=== PATIENT | female | born 1970 | race Caucasian/White ===

== ENCOUNTER 2020-01-06 08:06 | Outpatient (CLI) | payer BC, SELFPAY ==
[2020-01-06 08:26] LABS: Basophils Absolute Auto 0.01 K/mm3 (0.00-0.10); Basophils Percent Auto 0.2 % (0.0-1.0); Eosinophils Absolute Auto 0.11 K/mm3 (0.02-0.50); Eosinophils Percent Auto 2.3 % (1.0-6.0); Hematocrit 38.6 % (35.0-49.0); Hemoglobin 12.9 g/dL (12.0-15.0); Immature Granulocyte Absolute 0.01 K/mm3 (0.00-0.00); Immature Granulocyte Percent A 0.2 % (0.0-0.0); Lymphocytes Absolute Auto 1.99 K/mm3 (1.10-4.50); Lymphocytes Percent Auto 42.3 % (18.0-42.0); Mean Corpuscular HGB Conc 33.4 g/dL (32.0-36.0); Mean Corpuscular Hemoglobin 34.1 pg (27.0-31.0); Mean Corpuscular Volume 102.1 fL (78.0-102.0); Mean Platelet Volume 9.2 fl (9.2-11.8); Monocytes Absolute Auto 0.32 K/mm3 (0.10-0.90); Monocytes Percent Auto 6.8 % (2.0-11.0); Neutrophils Absolute Auto 2.3 K/mm3 (1.7-7.2); Neutrophils Percent Auto 48.2 % (50.0-70.0); Platelet Count Result 158 K/mm3 (150-420); Red Blood Count 3.78 M/mm3 (4.20-5.40); White Blood Count 4.7 K/mm3 (4.8-10.8)
[2020-01-06 08:27] LABS: Add Urine Microscopic? YES; Appearance Urine Clear (Clear); Bilirubin Urine Negative (Negative); Blood Urine 2+ (Negative); Color Urine Yellow (Yellow); Glucose Urine UA Negative (Negative); Ketones Urine Negative (Negative); Leukocyte Esterase Ur Negative LEU/UL (Negative); Nitrate Urine Negative (Negative); Protein Urine Negative (Negative); Specific Grav Ur 1.025 (1.010-1.020); Urobilinogen Urine 0.2 mg/dL (0.2-1.0)
[2020-01-06 08:33] LABS: Bacteria Urine 2+ /hpf; Squamous Epithelial Cell Urine Few /hpf (Few); WBC Urine 0-3 /hpf (0-3)
[2020-01-06 09:41] LABS: Alanine Aminotransferase 15 U/L (14-59); Albumin Level 3.4 g/dL (3.4-5.0); Alkaline Phosphatase 45 U/L (46-116); Anion Gap 8 mmol/L (8-16); Aspartate Amino Transferase < 10 U/L (15-37); Bilirubin,Total 0.2 mg/dL (0.00-1.00); Blood Urea Nitrogen 27 mg/dL (7-18); Carbon Dioxide 29 mmol/L (21-32); Chloride 105 mmol/L (98-108); Cholesterol 190 mg/dL (0-200); Estimated Glomerular Filt Rate > 60; Free T4 Free Thyroxine 0.93 ng/dL (0.76-1.46); Glucose 102 mg/dL (70-99); HDL Direct 72 mg/dL (40-60); LDL Cholesterol Calculated 100 mg/dL (<130); Osmolality Calculated 299 mOsm/kg (285-295); Potassium 4.5 mmol/L (3.5-5.1); Sodium 142 mmol/L (136-145); Thyroid Stimulating Hormone 1.64 uIU/mL (0.36-3.74); Total Protein 6.5 g/dL (6.4-8.2); Triglycerides 90 mg/dL (0-150)
[2020-01-06 14:41] LABS: Hemoglobin A1C 5.4 % (<5.7)
== END 2020-01-06 08:07 | disposition home or self-care (01) ==
PROVIDERS: PCP Internal Medicine; Visit Provider Internal Medicine
DX: E78.5 Hyperlipidemia, unspecified (principal); R73.01 Impaired fasting glucose
CPT/HCPCS: 36415; 80053; 80061; 81001; 83036; 84439; 84443; 85025

== ENCOUNTER 2020-01-10 10:59 | Outpatient (CLI) | payer BC, SELFPAY ==
[2020-01-10 11:13] LABS: Basophils Absolute Auto 0.01 K/mm3 (0.00-0.10); Basophils Percent Auto 0.2 % (0.0-1.0); Eosinophils Absolute Auto 0.05 K/mm3 (0.02-0.50); Hematocrit 39.1 % (35.0-49.0); Hemoglobin 13.1 g/dL (12.0-15.0); Immature Reticulocyte Fraction 11.4 % (2.0-16.52); Lymphocytes Absolute Auto 1.79 K/mm3 (1.10-4.50); Lymphocytes Percent Auto 37.4 % (18.0-42.0); Mean Corpuscular HGB Conc 33.5 g/dL (32.0-36.0); Mean Corpuscular Hemoglobin 34.1 pg (27.0-31.0); Mean Corpuscular Volume 101.8 fL (78.0-102.0); Mean Platelet Volume 9.6 fl (9.2-11.8); Monocytes Absolute Auto 0.29 K/mm3 (0.10-0.90); Monocytes Percent Auto 6.1 % (2.0-11.0); Neutrophils Absolute Auto 2.7 K/mm3 (1.7-7.2); Neutrophils Percent Auto 55.3 % (50.0-70.0); Platelet Count Result 170 K/mm3 (150-420); Red Blood Count 3.84 M/mm3 (4.20-5.40); Red Cell Distribution Width 12.1 % (11.6-14.4); Reticulocyte Hemoglobin Conten 38.8 pg (28.0-35.0); Reticulocyte Percent 2.88 % (0.50-1.50); Reticulocytes Absolute 0.11 M/mm3 (0.02-0.1); White Blood Count 4.8 K/mm3 (4.8-10.8)
[2020-01-10 12:36] LABS: Lactate Dehydrogenase 135 U/L (81-234); Vitamin B12 288 pg/mL (193-986)
[2020-01-12 14:58] LABS: Red Blood Cell Folate 806 ng/mL RBC (>280)
[2020-01-14 23:47] LABS: Methylmalonic Acid 199 nmol/L (87-318)
== END 2020-01-10 11:00 | disposition home or self-care (01) ==
PROVIDERS: PCP Internal Medicine; Visit Provider Internal Medicine
DX: D72.820 Lymphocytosis (symptomatic) (principal); E53.9 Vitamin B deficiency, unspecified
CPT/HCPCS: 36415; 82607; 82747; 83615; 83921; 85025; 85046; 88184; 88185; 88189

== ENCOUNTER 2020-01-12 10:03 | Outpatient (CLI) | payer BC, SELFPAY ==
--- NOTE | ~2020-01-12 | MM_ITS ---
EXAMINATION: MM screening meron BI w evan HISTORY: Screening mammogram, family history of breast cancer in her mother. TECHNIQUE: Craniocaudal and mediolateral oblique 3-D tomosynthesis images were obtained and synthetic 2-D images were generated. CAD analysis was submitted and interpreted. COMPARISON: 02/18/2017, 01/31/2016, 12/07/2014 BREAST PARENCHYMAL COMPOSITION: The breasts are extremely dense, which lowers the sensitivity of mamm ography. FINDINGS: There is no evidence of suspicious mass, calcification, or architectural distortion to sugg est malignancy in either breast. There has been no suspicious interval change. IMPRESSION: 1. No mammographic evidence of malignancy. 2. Recommend routine screening mammography in one year. BI-RADS Category 1: Negative Reviewed, dictated and finalized at location A. ICIAN VICE PRESIDENT
== END 2020-01-12 10:04 | disposition home or self-care (01) ==
LOC: CHSIMG 10:05
PROVIDERS: PCP Internal Medicine; Visit Provider Obstetrics & Gynecology
DX: Z12.31 Encounter for screening mammogram for malignant neoplasm of breast (principal)
CPT/HCPCS: 77063; 77067

== ENCOUNTER 2020-08-23 07:19 | Outpatient (CLI) | payer BC, SELFPAY ==
[2020-08-23 07:50] LABS: Hemoglobin A1C 5.3 % (<5.7)
[2020-08-23 08:39] LABS: Anion Gap 12 mmol/L (8-16); Blood Urea Nitrogen 23 mg/dL (7-18); Calcium 8.8 mg/dL (8.5-10.1); Carbon Dioxide 27 mmol/L (21-32); Chloride 102 mmol/L (98-108); Estimated Glomerular Filt Rate > 60; Glucose 92 mg/dL (70-99); Osmolality Calculated 295 mOsm/kg (285-295); Potassium 4.2 mmol/L (3.5-5.1); Sodium 141 mmol/L (136-145)
== END 2020-08-23 07:20 | disposition home or self-care (01) ==
LOC: CHSLAB 07:20
PROVIDERS: PCP Internal Medicine; Visit Provider Internal Medicine
DX: R73.01 Impaired fasting glucose (principal)
CPT/HCPCS: 36415; 80048; 83036

== ENCOUNTER → 2020-11-24 03:59 | Outpatient (CLI) | payer BC, SELFPAY ==
[2020-11-24 18:26] LABS: SARS-CoV-2 RNA PCR Negative
== END ==
PROVIDERS: PCP Internal Medicine; Visit Provider Internal Medicine Gastroenterology
DX: Z01.812 Encounter for preprocedural laboratory examination (principal); Z20.822 Contact with and (suspected) exposure to COVID-19
CPT/HCPCS: C9803; U0003; U0005

== ENCOUNTER 2020-11-27 01:01 | Day surgery (SDC) | payer BC, SELFPAY ==
[2020-11-16 09:22] VITALS: BMI 23.8
[2020-11-27 09:48] VITALS: BP 148/73; PULSE 72; RESP 16; TEMP 36.4; O2SAT 100
[2020-11-27] MEDS: LACTATED RINGERS 1,000 ML 150 ML IV CONT (09:56)
--- NOTE | 2020-11-27 09:57 | WPDANESEPPF ---
Anes - Initial Pre Proc Eval Procedure: Operation Date: 11/27/20 10:45 Proposed Procedures p Screening Colonoscopy - Prabhjot Vega MD Date/Time: 11/27/20 09:57 Surgeon: Prabhjot Vega MD Pre Op Diagnosis: neoplasm screening Patient Data Age: 50 Gender: F Height: 1.57 m Weight: 57.2 kg Last Vital Signs Temp 36.4 C 11/27/20 09:48 Pulse 72 11/27/20 09:48 Resp 16 11/27/20 09:48 BP 148/73 H 11/27/20 09:48 Pulse Ox 100 11/27/20 09:48 Allergies Allergy/AdvReac Type Severity Reaction Status Date / Time codeine Allergy Unknown Other Verified 11/27/20 09:46 Home Medications Medication Instructions Recorded Confirmed Type cholecalciferol (vitamin D3) 25 mcg PO DAILY 11/16/20 11/16/20 History [Vitamin D3] ipratropium bromide 2 spray INTRANASAL TID 11/16/20 11/16/20 History loratadine-pseudoephedrine 1 tablet PO DAILY 11/16/20 11/16/20 History [Claritin-D 24 Hour] mecobalamin (vitamin B12) 1,000 mcg PO DAILY 11/16/20 11/16/20 History montelukast 10 mg PO DAILY 11/16/20 11/16/20 History multivit with min-folic acid 1 tablet PO DAILY 11/16/20 11/16/20 History [Adult One Daily Multivitamin] norethindrone ac-eth estradiol 1 tablet PO DAILY 11/16/20 11/16/20 History [Microgestin 03/22 (21)] omega-3 fatty acids-vitamin E 1 cap PO DAILY 11/16/20 11/16/20 History [Fish Oil] omeprazole magnesium [Prilosec OTC] 20 mg PO EVERY OTHER DAY 11/16/20 11/16/20 History paroxetine HCl 10 mg PO DAILY 11/16/20 11/16/20 History valacyclovir [Valtrex] 500 mg PO DAILY 11/16/20 11/16/20 History Patient hx anesthesia problems: none Family hx anesthesia problems: none Results Review: All pre-operative results and documents have been reviewed as part of the pre-operative evaluation. [facility] Past Medical History Medical History (Updated 11/27/20 @ 09:57 by Blair Anderson MD) Asthma Surgical History Surgical History (Updated 11/27/20 @ 09:57 by Blair Anderson MD) History of esophagogastroduodenoscopy (EGD) Family History Family History Father Diabetes mellitus Family history of elevated blood lipids Mother Diabetes mellitus Hypertension Family history of elevated blood lipids Family history of malignant neoplasm of cervix Sibling Diabetes mellitus Other Family history of allergic disorder Family history of coronary artery disease Social History Social History Smoking status: Never smoker Alcohol intake: current Living arrangements: with family Spiritual care concerns: No Anes - Eval Final PreProcedure Day of Procedure 11/27/20 09:57 Patient weight: normal Heart: regular rate and rhythm Lungs: clear to auscultation Airway: Mallampati scale class II Neurological: alert and oriented Last oral intake: >/= 8 hours ASA classification: II Emergent: no Anesthetic plan: proceed Anesthesia type and monitoring: general GIVS and standard monitoring Results Review: All pre-operative results and documents have been reviewed as part of the pre-operative evaluation. Informed Consent: The patient's anesthetic plan and its attendant risks and benefits were discussed with the patient/family/POA. Questions were solicited and answers provided to the satisfaction of the patient/family/POA.
--- NOTE | 2020-11-27 10:23 | PM.HPGS ---
History of Present Illness History of Present Illness Consent: Risks, benefits, and alternatives have been discussed and questions answered. Patient agrees to proceed with procedure. Chief complaint: neoplasm screening Narrative: Jessie Summers is a 50 year old female here for first screening colonoscopy Review of Systems Constitutional: Constitutional: Denies headache(s) and Denies weakness Eyes: Eyes: Denies blurry vision ENT: Reports Normal hearing present, Denies headache(s) and Denies neck pain Cardiovascular: Cardiovascular: Denies chest pain and Denies dyspnea Respiratory: Respiratory: Denies dyspnea Gastrointestinal: Gastrointestinal: Reports no additional gastrointestinal complaints Genitourinary: Genitourinary: Denies dysuria Musculoskeletal: Musculoskeletal: Denies neck pain Integumentary/Breasts: Skin/Breast: Denies dry skin Neurologic: Reports Normal hearing present, Denies headache(s) and Denies weakness Psychiatric: Psychiatric: Denies anxiety Endocrine: Endocrine: Denies change in body appearance Hematologic/Lymphatic: Hematologic/Lymphatic: Denies easy bleeding Allergic/Immunologic: Allergic/Immunologic: Denies urticaria PMFSH Past Medical History Medical History (Updated 11/27/20 @ 10:24 by Prabhjot Vega MD) Asthma Colon cancer screening Surgical History Surgical History (Updated 11/27/20 @ 09:57 by Blair Anderson MD) History of esophagogastroduodenoscopy (EGD) Family History Family History Father Diabetes mellitus Family history of elevated blood lipids Mother Diabetes mellitus Hypertension Family history of elevated blood lipids Family history of malignant neoplasm of cervix Sibling Diabetes mellitus Other Family history of allergic disorder Family history of coronary artery disease Social History Social History Smoking status: Never smoker Alcohol intake: current Living arrangements: with family Spiritual care concerns: No Meds Home Medications and Allergies Home Medications Medication Instructions Recorded Confirmed Type cholecalciferol (vitamin D3) 25 mcg PO DAILY 11/16/20 11/16/20 History [Vitamin D3] ipratropium bromide 2 spray INTRANASAL TID 11/16/20 11/16/20 History loratadine-pseudoephedrine 1 tablet PO DAILY 11/16/20 11/16/20 History [Claritin-D 24 Hour] mecobalamin (vitamin B12) 1,000 mcg PO DAILY 11/16/20 11/16/20 History montelukast 10 mg PO DAILY 11/16/20 11/16/20 History multivit with min-folic acid 1 tablet PO DAILY 11/16/20 11/16/20 History [Adult One Daily Multivitamin] norethindrone ac-eth estradiol 1 tablet PO DAILY 11/16/20 11/16/20 History [Microgestin 03/22 ()] omega-3 fatty acids-vitamin E 1 cap PO DAILY 11/16/20 11/16/20 History [Fish Oil] omeprazole magnesium [Prilosec OTC] 20 mg PO EVERY OTHER DAY 11/16/20 11/16/20 History paroxetine HCl 10 mg PO DAILY 11/16/20 11/16/20 History valacyclovir [Valtrex] 500 mg PO DAILY 11/16/20 11/16/20 History Allergies Allergy/AdvReac Type Severity Reaction Status Date / Time codeine Allergy Unknown Other Verified 11/27/20 09:46 Vital Signs Vital Signs - 24 hr 11/27/20 09:48 Temperature 97.6 F Pulse Rate 72 Respiratory Rate 16 Blood Pressure 148/73 H Pulse Oximetry 100 Exam Const: General: comfortable and no acute distress HENMT: General nose exam: Normal nares present Eyes: General: appearance normal, both eyes and all related structures Neck: Neck: no JVD Resp: Auscultation: clear to auscultation bilaterally Cardio: Rate: regular rate Rhythm: regular rhythm GI: Inspection: non-distended GI Palp: Yes Soft to palpation Skin: General skin exam: normal color Neuro: General: gait normal Speech: normal speech Extrem: General: normal to inspection Psych: Mental Status: mental status grossly normal
[2020-11-27 10:42] VITALS: BP 122/68; PULSE 63; RESP 17; O2SAT 100
[2020-11-27 10:52] VITALS: BP 145/78; PULSE 69; RESP 17; O2SAT 100
[2020-11-27 11:02] VITALS: BP 156/86; PULSE 63; RESP 19; O2SAT 100
== END 2020-11-27 11:12 | disposition home or self-care (01) ==
PROVIDERS: PCP Internal Medicine; Visit Provider Internal Medicine Gastroenterology
PROC: 0DJD8ZZ Inspection of Lower Intestinal Tract, Via Natural or Artificial Opening Endoscopic (ICD-10-PCS; CPT 45378; principal; 2020-11-27 10:45)
DX: Z12.11 Encounter for screening for malignant neoplasm of colon (principal); K64.8 Other hemorrhoids; J45.909 Unspecified asthma, uncomplicated
CPT/HCPCS: 45378; J2704; J7120

== ENCOUNTER 2021-04-30 08:01 | Outpatient (CLI) | payer BC, SELFPAY ==
[2021-04-30 08:24] LABS: Basophils Absolute Auto 0.03 K/mm3 (0.00-0.10); Basophils Percent Auto 0.6 % (0.0-1.0); Eosinophils Absolute Auto 0.22 K/mm3 (0.02-0.50); Eosinophils Percent Auto 4.4 % (1.0-6.0); Hematocrit 39.4 % (35.0-49.0); Immature Granulocyte Absolute 0.02 K/mm3 (0.00-0.00); Immature Granulocyte Percent A 0.4 % (0.0-0.0); Lymphocytes Absolute Auto 1.82 K/mm3 (1.10-4.50); Lymphocytes Percent Auto 36.1 % (18.0-42.0); Mean Platelet Volume 9.2 fl (9.2-11.8); Monocytes Absolute Auto 0.34 K/mm3 (0.10-0.90); Monocytes Percent Auto 6.7 % (2.0-11.0); Neutrophils Absolute Auto 2.6 K/mm3 (1.7-7.2); Neutrophils Percent Auto 51.8 % (50.0-70.0); Platelet Count Result 173 K/mm3 (150-420); Red Blood Count 3.94 M/mm3 (4.20-5.40); Red Cell Distribution Width 11.9 % (11.6-14.4)
[2021-04-30 08:42] LABS: Add Urine Microscopic? YES; Bilirubin Urine Negative (Negative); Blood Urine 2+ (Negative); Color Urine Light Yellow (Yellow); Glucose Urine UA Negative (Negative); Ketones Urine Negative (Negative); Leukocyte Esterase Ur Trace LEU/UL (Negative); Nitrate Urine Positive (Negative); Protein Urine Negative (Negative); Urobilinogen Urine 0.2 mg/dL (0.2-1.0); pH Urine 6.5 (5.0-8.0)
[2021-04-30 08:53] LABS: Appearance Urine Sl Cloudy (Clear); Squamous Epithelial Cell Urine Few /hpf (Few); WBC Urine 0-3 /hpf (0-3)
[2021-04-30 08:54] LABS: Bacteria Urine 3+ /hpf
[2021-04-30 08:56] LABS: Alanine Aminotransferase 14 U/L (14-59); Albumin Level 3.3 g/dL (3.4-5.0); Alkaline Phosphatase 51 U/L (46-116); Anion Gap 9 mmol/L (8-16); Aspartate Amino Transferase 11 U/L (15-37); Bilirubin,Total 0.3 mg/dL (0.00-1.00); Blood Urea Nitrogen 22 mg/dL (7-18); Calcium 8.9 mg/dL (8.5-10.1); Carbon Dioxide 29 mmol/L (21-32); Chloride 104 mmol/L (98-108); Cholesterol 213 mg/dL (0-200); Estimated Glomerular Filt Rate > 60; Glucose 90 mg/dL (70-99); HDL Direct 78 mg/dL (40-60); LDL Cholesterol Calculated 98 mg/dL (<130); Osmolality Calculated 297 mOsm/kg (285-295); Potassium 4.2 mmol/L (3.5-5.1); Sodium 142 mmol/L (136-145); Total Protein 6.8 g/dL (6.4-8.2); Triglycerides 186 mg/dL (0-150)
[2021-04-30 09:42] LABS: Hemoglobin A1C 5.5 % (<5.7)
== END 2021-04-30 08:02 | disposition home or self-care (01) ==
LOC: CHSLAB 08:03
PROVIDERS: PCP Internal Medicine; Visit Provider Internal Medicine
DX: Z00.00 Encounter for general adult medical examination without abnormal findings (principal); R73.01 Impaired fasting glucose; R82.90 Unspecified abnormal findings in urine
CPT/HCPCS: 36415; 80053; 80061; 81001; 83036; 85025; 87077; 87086; 87088; 87186

== ENCOUNTER 2021-05-16 13:56 | Outpatient (CLI) | payer BC, SELFPAY ==
[2021-05-16 16:00] LABS: Anion Gap 8 mmol/L (8-16); Blood Urea Nitrogen 30 mg/dL (7-18); Calcium 9.1 mg/dL (8.5-10.1); Carbon Dioxide 29 mmol/L (21-32); Chloride 98 mmol/L (98-108); Estimated Glomerular Filt Rate > 60; Glucose 91 mg/dL (70-99); Osmolality Calculated 286 mOsm/kg (285-295); Potassium 4.3 mmol/L (3.5-5.1); Sodium 135 mmol/L (136-145)
== END 2021-05-16 13:57 | disposition home or self-care (01) ==
LOC: CHSLAB 13:57
PROVIDERS: PCP Internal Medicine; Visit Provider Internal Medicine
DX: I10 Essential (primary) hypertension (principal)
CPT/HCPCS: 36415; 80048

== ENCOUNTER 2021-05-22 11:39 | Outpatient (CLI) | payer BC, SELFPAY ==
--- NOTE | ~2021-05-22 | MM_ITS ---
EXAMINATION: MM screening meron BI w evan HISTORY: Screening mammogram TECHNIQUE: Craniocaudal and mediolateral oblique 3-D tomosynthesis images were obtained and synthetic 2-D images were generated. CAD analysis was submitted and interpreted. COMPARISON: 01/12/2020, 02/18/2017, 01/31/2016 bilateral screening mammogram examinations BREAST PARENCHYMAL COMPOSITION: The breasts are extremely dense, which lowers the sensitivity of mamm ography. FINDINGS: There is no evidence of suspicious mass, calcification, or architectural distortion to sugg est malignancy in either breast. There has been no suspicious interval change. IMPRESSION: 1. No mammographic evidence of malignancy. 2. Recommend routine screening mammography in one year. BI-RADS Category 1: Negative Reviewed, dictated and finalized at location A.
== END 2021-05-22 11:40 | disposition home or self-care (01) ==
LOC: CHSIMG 11:40
PROVIDERS: PCP Internal Medicine; Visit Provider Obstetrics & Gynecology
DX: Z12.31 Encounter for screening mammogram for malignant neoplasm of breast (principal)
CPT/HCPCS: 77063; 77067

== ENCOUNTER 2021-07-02 14:00 | Outpatient (CLI) | payer BC, SELFPAY ==
[2021-07-02 14:17] LABS: Add Urine Microscopic? YES; Appearance Urine Clear (Clear); Bilirubin Urine Negative (Negative); Blood Urine 2+ (Negative); Color Urine Light Yellow (Yellow); Glucose Urine UA Negative (Negative); Ketones Urine Negative (Negative); Leukocyte Esterase Ur Negative (Negative); Nitrate Urine Negative (Negative); Protein Urine Negative (Negative); Specific Grav Ur >= 1.030 (1.010-1.020); Urobilinogen Urine 0.2 mg/dL (0.2-1.0)
[2021-07-02 14:24] LABS: Anion Gap 8 mmol/L (8-16); Blood Urea Nitrogen 27 mg/dL (7-18); Carbon Dioxide 27 mmol/L (21-32); Chloride 101 mmol/L (98-108); Estimated Glomerular Filt Rate 58; Glucose 133 mg/dL (70-99); Osmolality Calculated 289 mOsm/kg (285-295); Sodium 136 mmol/L (136-145)
[2021-07-02 14:27] LABS: Squamous Epithelial Cell Urine Moderate /hpf (Few); WBC Urine 0-3 /hpf (0-3)
[2021-07-02 14:28] LABS: Bacteria Urine Trace /hpf; Mucus Urine Few /lpf
== END 2021-07-02 14:01 | disposition home or self-care (01) ==
LOC: CHSLAB 14:02
PROVIDERS: PCP Internal Medicine; Visit Provider Internal Medicine
DX: I10 Essential (primary) hypertension (principal)
CPT/HCPCS: 36415; 80048; 81001

== ENCOUNTER 2021-08-07 09:43 | Outpatient (CLI) | payer BC, SELFPAY ==
[2021-08-07 09:58] LABS: Add Urine Microscopic? YES; Appearance Urine Clear (Clear); Bilirubin Urine Negative (Negative); Blood Urine 2+ (Negative); Color Urine Yellow (Yellow); Glucose Urine UA Negative (Negative); Ketones Urine Negative (Negative); Leukocyte Esterase Ur Negative (Negative); Nitrate Urine Negative (Negative); Protein Urine Negative (Negative); Specific Grav Ur >= 1.030 (1.010-1.020); Urobilinogen Urine 0.2 mg/dL (0.2-1.0); pH Urine 5.5 (5.0-8.0)
[2021-08-07 10:08] LABS: Bacteria Urine 1+ /hpf; Squamous Epithelial Cell Urine Few /hpf (Few); WBC Urine None seen /hpf (0-3)
[2021-08-07 10:13] LABS: Anion Gap 7 mmol/L (8-16); Blood Urea Nitrogen 22 mg/dL (7-18); Calcium 9.2 mg/dL (8.5-10.1); Carbon Dioxide 29 mmol/L (21-32); Chloride 100 mmol/L (98-108); Estimated Glomerular Filt Rate > 60; Glucose 104 mg/dL (70-99); Osmolality Calculated 285 mOsm/kg (285-295); Potassium 3.4 mmol/L (3.5-5.1); Sodium 136 mmol/L (136-145)
== END 2021-08-07 09:44 | disposition home or self-care (01) ==
LOC: CHSLAB 09:44
PROVIDERS: PCP Internal Medicine; Visit Provider Internal Medicine
DX: I10 Essential (primary) hypertension (principal)
CPT/HCPCS: 36415; 80048; 81001

== ENCOUNTER 2021-09-26 14:21 | Outpatient (CLI) | payer BC, SELFPAY ==
[2021-09-26 14:53] LABS: Anion Gap 9 mmol/L (8-16); Blood Urea Nitrogen 24 mg/dL (7-18); Calcium 9.6 mg/dL (8.5-10.1); Carbon Dioxide 26 mmol/L (21-32); Chloride 104 mmol/L (98-108); Estimated Glomerular Filt Rate > 60; Glucose 128 mg/dL (70-99); Osmolality Calculated 294 mOsm/kg (285-295); Potassium 4.1 mmol/L (3.5-5.1); Sodium 139 mmol/L (136-145)
== END 2021-09-26 14:22 | disposition home or self-care (01) ==
LOC: CHSLAB 14:23
PROVIDERS: PCP Internal Medicine; Visit Provider Internal Medicine
DX: I10 Essential (primary) hypertension (principal)
CPT/HCPCS: 36415; 80048

== ENCOUNTER 2022-02-21 08:10 | Outpatient (CLI) | payer BC, SELFPAY ==
[2022-02-21 08:35] LABS: Basophils Absolute Auto 0.02 K/mm3 (0.00-0.10); Basophils Percent Auto 0.5 % (0.0-1.0); Eosinophils Percent Auto 2.3 % (1.0-6.0); Hematocrit 35.9 % (35.0-49.0); Immature Granulocyte Absolute 0.01 K/mm3 (0.00-0.00); Immature Granulocyte Percent A 0.2 % (0.0-0.0); Lymphocytes Absolute Auto 1.85 K/mm3 (1.10-4.50); Mean Corpuscular HGB Conc 33.4 g/dL (32.0-36.0); Mean Corpuscular Hemoglobin 33.3 pg (27.0-31.0); Mean Corpuscular Volume 99.7 fL (78.0-102.0); Mean Platelet Volume 9.5 fl (9.2-11.8); Monocytes Absolute Auto 0.27 K/mm3 (0.10-0.90); Monocytes Percent Auto 6.1 % (2.0-11.0); Neutrophils Absolute Auto 2.2 K/mm3 (1.7-7.2); Neutrophils Percent Auto 48.9 % (50.0-70.0); Platelet Count Result 172 K/mm3 (150-420); Red Cell Distribution Width 12.1 % (11.6-14.4); White Blood Count 4.4 K/mm3 (4.8-10.8)
[2022-02-21 08:36] LABS: Add Urine Microscopic? YES; Appearance Urine Clear (Clear); Bilirubin Urine Negative (Negative); Blood Urine 3+ (Negative); Color Urine Light Yellow (Yellow); Glucose Urine UA Negative (Negative); Ketones Urine Negative (Negative); Leukocyte Esterase Ur 1+ LEU/UL (Negative); Nitrate Urine Negative (Negative); Protein Urine Negative (Negative); Specific Grav Ur 1.025 (1.010-1.020); Urobilinogen Urine 0.2 mg/dL (0.2-1.0)
[2022-02-21 08:41] LABS: Bacteria Urine 1+ /hpf; Squamous Epithelial Cell Urine Moderate /hpf (Few)
[2022-02-21 09:04] LABS: Hemoglobin A1C 5.3 % (<5.7)
[2022-02-21 10:06] LABS: Alanine Aminotransferase 15 U/L (14-59); Albumin Level 3.3 g/dL (3.4-5.0); Alkaline Phosphatase 46 U/L (46-116); Anion Gap 8 mmol/L (8-16); Aspartate Amino Transferase 12 U/L (15-37); Bilirubin,Total 0.2 mg/dL (0.00-1.00); Blood Urea Nitrogen 24 mg/dL (7-18); Calcium 8.8 mg/dL (8.5-10.1); Carbon Dioxide 29 mmol/L (21-32); Chloride 103 mmol/L (98-108); Cholesterol 196 mg/dL (0-200); Creatine Kinase 47 U/L (26-192); Estimated Glomerular Filt Rate > 60; Glucose 100 mg/dL (70-99); HDL Direct 74 mg/dL (40-60); LDL Cholesterol Calculated 105 mg/dL (<130); Osmolality Calculated 294 mOsm/kg (285-295); Potassium 4.2 mmol/L (3.5-5.1); Sodium 140 mmol/L (136-145); Total Protein 6.5 g/dL (6.4-8.2); Triglycerides 87 mg/dL (0-150)
== END 2022-02-21 08:11 | disposition home or self-care (01) ==
LOC: CHSLAB 08:13
PROVIDERS: PCP Internal Medicine; Visit Provider Internal Medicine
DX: E78.2 Mixed hyperlipidemia (principal); I10 Essential (primary) hypertension; R73.01 Impaired fasting glucose; N39.0 Urinary tract infection, site not specified
CPT/HCPCS: 36415; 80053; 80061; 81001; 82550; 83036; 85025; 87086; 87088

== ENCOUNTER 2022-05-23 11:56 | Outpatient (CLI) | payer BC, SELFPAY ==
--- NOTE | ~2022-05-23 | MM_ITS ---
EXAMINATION: MM screening meron BI w evan HISTORY: Screening TECHNIQUE: Craniocaudal and mediolateral oblique 3-D tomosynthesis images were obtained and synthetic 2-D images were generated. CAD analysis was submitted and interpreted. COMPARISON: Comparison to multiple prior studies sequentially, with oldest reviewed study dated 11/24. BREAST PARENCHYMAL COMPOSITION: The breasts are heterogeneously dense, which may obscure small masses FINDINGS: The left breast is stable without evidence for malignancy. There is possible architectural distortion in the upper inner quadrant of the right breast. IMPRESSION: 1. Possible architectural distortion upper inner quadrant of the right breast. 2. Additional mammographic views and possible breast ultrasound are recommended. BI-RADS Category 0: Incomplete: Needs additional imaging evaluation. Reviewed, dictated and finalized at location A. IMPRESSION: 1. Possible architectural distortion upper inner quadrant of the right breast. 2. Additional mammographic views and possible breast ultrasound are recommended . BI-RADS Category 0: Incomplete: Needs additional imaging evaluation.
== END 2022-05-23 11:57 | disposition home or self-care (01) ==
LOC: CHSIMG 11:57
PROVIDERS: PCP Internal Medicine; Visit Provider Obstetrics & Gynecology
DX: Z12.31 Encounter for screening mammogram for malignant neoplasm of breast (principal); R92.8 Other abnormal and inconclusive findings on diagnostic imaging of breast
CPT/HCPCS: 77063; 77067

== ENCOUNTER 2022-05-31 09:26 | Outpatient (CLI) | payer BC, SELFPAY ==
--- NOTE | ~2022-05-31 | MMUS_ITS ---
EXAMINATION: MM diagnostic meron RT w evan, US breast RT complete HISTORY: Follow-up right breast asymmetry TECHNIQUE: Additional 3-D tomosynthesis images of the right breast were performed and synthetic 2-D i mages were generated. CAD analysis was submitted and interpreted. High resolution complete right sudha st ultrasound was performed. COMPARISON: Comparison to multiple prior studies sequentially, with oldest reviewed study dated 01/31. BREAST PARENCHYMAL COMPOSITION: The breasts are heterogeneously dense, which may obscure small masses FINDINGS: MAMMOGRAPHIC FINDINGS: Focal asymmetries in the medial aspect of the right breast on CC view are less apparent with spot com pression views particularly on medial lateral and MLO views. No discrete mass is identified. No suspi cious calcifications. ULTRASOUND: Complete US of all 4 quadrants of the right breast and retroareolar region was reviewed. Normal heter ogeneous echotexture without focal solid or cystic mass. IMPRESSION: 1. No evidence for malignancy in the right breast. 2. Routine yearly screening mammogram and regular clinical breast examination are recommended. BI-RADS Category 1: Negative Reviewed, dictated and finalized at location A. IMPRESSION: 1. No evidence for malignancy in the right breast. 2. Routine yearly screening mammogram and regular clinical breast examination a re recommended. BI-RADS Category 1: Negative
== END 2022-05-31 09:27 | disposition home or self-care (01) ==
LOC: CHSIMG 09:27
PROVIDERS: PCP Internal Medicine; Visit Provider Internal Medicine
DX: R92.8 Other abnormal and inconclusive findings on diagnostic imaging of breast (principal)
CPT/HCPCS: 76641; 77061; 77065; G0279

== ENCOUNTER 2022-09-20 08:11 | Outpatient (CLI) | payer BC, SELFPAY ==
[2022-09-20 08:24] LABS: Basophils Absolute Auto 0.02 K/mm3 (0.00-0.10); Basophils Percent Auto 0.4 % (0.0-1.0); Eosinophils Absolute Auto 0.07 K/mm3 (0.02-0.50); Eosinophils Percent Auto 1.3 % (1.0-6.0); Hematocrit 36.7 % (35.0-49.0); Hemoglobin 12.2 g/dL (12.0-15.0); Immature Granulocyte Absolute 0.02 K/mm3 (0.00-0.00); Immature Granulocyte Percent A 0.4 % (0.0-0.0); Lymphocytes Absolute Auto 2.01 K/mm3 (1.10-4.50); Mean Corpuscular HGB Conc 33.2 g/dL (32.0-36.0); Mean Corpuscular Hemoglobin 33.4 pg (27.0-31.0); Mean Corpuscular Volume 100.5 fL (78.0-102.0); Mean Platelet Volume 9.4 fl (9.2-11.8); Monocytes Absolute Auto 0.33 K/mm3 (0.10-0.90); Monocytes Percent Auto 6.2 % (2.0-11.0); Neutrophils Absolute Auto 2.8 K/mm3 (1.7-7.2); Neutrophils Percent Auto 53.7 % (50.0-70.0); Platelet Count Result 191 K/mm3 (150-420); Red Blood Count 3.65 M/mm3 (4.20-5.40); Red Cell Distribution Width 12.2 % (11.6-14.4); White Blood Count 5.3 K/mm3 (4.8-10.8)
[2022-09-20 08:33] LABS: Hemoglobin A1C 5.3 % (<5.7)
[2022-09-20 08:49] LABS: Bilirubin Urine Negative (Negative); Blood Urine 2+ (Negative); Color Urine Yellow (Yellow); Glucose Urine UA Negative (Negative); Ketones Urine Negative (Negative); Leukocyte Esterase Ur 1+ LEU/UL (Negative); Nitrate Urine Negative (Negative); Protein Urine Negative (Negative); Urobilinogen Urine 0.2 mg/dL (0.2-1.0)
[2022-09-20 09:08] LABS: Appearance Urine Cloudy (Clear)
[2022-09-20 09:09] LABS: Add Urine Microscopic? YES; Bacteria Urine 2+ /hpf; Squamous Epithelial Cell Urine Moderate /hpf (Few)
[2022-09-20 09:16] LABS: Alanine Aminotransferase 18 U/L (14-59); Albumin Level 3.3 g/dL (3.4-5.0); Alkaline Phosphatase 57 U/L (46-116); Anion Gap 8 mmol/L (8-16); Aspartate Amino Transferase 13 U/L (15-37); Bilirubin,Total 0.4 mg/dL (0.00-1.00); Blood Urea Nitrogen 22 mg/dL (7-18); Calcium 9.1 mg/dL (8.5-10.1); Carbon Dioxide 30 mmol/L (21-32); Chloride 102 mmol/L (98-108); Cholesterol 204 mg/dL (0-200); Creatine Kinase 43 U/L (26-192); Estimated Glomerular Filt Rate > 60; Glucose 94 mg/dL (70-99); HDL Direct 65 mg/dL (40-60); LDL Cholesterol Calculated 98 mg/dL (<130); Osmolality Calculated 293 mOsm/kg (285-295); Potassium 4.1 mmol/L (3.5-5.1); Sodium 140 mmol/L (136-145); Total Protein 6.6 g/dL (6.4-8.2); Triglycerides 203 mg/dL (0-150)
== END 2022-09-20 08:12 | disposition home or self-care (01) ==
LOC: CHSLAB 08:14
PROVIDERS: PCP Internal Medicine; Visit Provider Internal Medicine
DX: N39.0 Urinary tract infection, site not specified (principal); R73.01 Impaired fasting glucose; E78.5 Hyperlipidemia, unspecified
CPT/HCPCS: 36415; 80053; 80061; 81001; 82550; 83036; 85025; 87086; 87088

== ENCOUNTER 2023-03-21 07:45 | Outpatient (CLI) | payer BC, SELFPAY ==
[2023-03-21 07:57] LABS: Basophils Absolute Auto 0.03 K/mm3 (0.00-0.10); Basophils Percent Auto 0.5 % (0.0-1.0); Eosinophils Percent Auto 1.8 % (1.0-6.0); Hematocrit 36.1 % (35.0-49.0); Hemoglobin 11.7 g/dL (12.0-15.0); Immature Granulocyte Absolute 0.01 K/mm3 (0.00-0.00); Immature Granulocyte Percent A 0.2 % (0.0-0.0); Lymphocytes Absolute Auto 2.33 K/mm3 (1.10-4.50); Lymphocytes Percent Auto 41.7 % (18.0-42.0); Mean Corpuscular HGB Conc 32.4 g/dL (32.0-36.0); Mean Corpuscular Hemoglobin 32.5 pg (27.0-31.0); Mean Corpuscular Volume 100.3 fL (78.0-102.0); Mean Platelet Volume 9.6 fl (9.2-11.8); Monocytes Absolute Auto 0.34 K/mm3 (0.10-0.90); Monocytes Percent Auto 6.1 % (2.0-11.0); Neutrophils Absolute Auto 2.8 K/mm3 (1.7-7.2); Neutrophils Percent Auto 49.7 % (50.0-70.0); Platelet Count Result 176 K/mm3 (150-420); Red Cell Distribution Width 12.3 % (11.6-14.4); White Blood Count 5.6 K/mm3 (4.8-10.8)
[2023-03-21 08:01] LABS: Appearance Urine Clear (Clear); Bilirubin Urine Negative (Negative); Blood Urine 3+ (Negative); Color Urine Yellow (Yellow); Glucose Urine UA Negative (Negative); Ketones Urine Negative (Negative); Leukocyte Esterase Ur Trace LEU/UL (Negative); Nitrate Urine Negative (Negative); Protein Urine Negative (Negative); Urobilinogen Urine 0.2 mg/dL (0.2-1.0); pH Urine 6.5 (5.0-8.0)
[2023-03-21 08:10] LABS: Hemoglobin A1C 5.3 % (<5.7)
[2023-03-21 08:11] LABS: Add Urine Microscopic? YES; Squamous Epithelial Cell Urine Few /hpf (Few); WBC Urine 0-3 /hpf (0-3)
[2023-03-21 08:12] LABS: Bacteria Urine Trace /hpf
[2023-03-21 08:53] LABS: Alanine Aminotransferase 17 U/L (14-59); Albumin Level 3.2 g/dL (3.4-5.0); Alkaline Phosphatase 51 U/L (46-116); Anion Gap 11 mmol/L (8-16); Aspartate Amino Transferase 16 U/L (15-37); Bilirubin,Total 0.4 mg/dL (0.00-1.00); Blood Urea Nitrogen 26 mg/dL (7-18); Calcium 8.6 mg/dL (8.5-10.1); Carbon Dioxide 27 mmol/L (21-32); Chloride 98 mmol/L (98-108); Cholesterol 204 mg/dL (0-200); Creatine Kinase 49 U/L (26-192); Estimated Glomerular Filt Rate > 60; Glucose 96 mg/dL (70-99); HDL Direct 71 mg/dL (40-60); LDL Cholesterol Calculated 98 mg/dL (<130); Osmolality Calculated 286 mOsm/kg (285-295); Potassium 3.8 mmol/L (3.5-5.1); Sodium 136 mmol/L (136-145); Total Protein 6.5 g/dL (6.4-8.2); Triglycerides 177 mg/dL (0-150)
== END 2023-03-21 07:46 | disposition home or self-care (01) ==
LOC: CHSLAB 07:47
PROVIDERS: PCP Internal Medicine; Visit Provider Internal Medicine
DX: N39.0 Urinary tract infection, site not specified (principal); E78.5 Hyperlipidemia, unspecified; R73.01 Impaired fasting glucose
CPT/HCPCS: 36415; 80053; 80061; 81001; 82550; 83036; 85025

== ENCOUNTER 2023-06-03 13:54 | Outpatient (CLI) | payer BC, SELFPAY ==
--- NOTE | ~2023-06-03 | MM_ITS ---
EXAMINATION: MM screening meron BI w evan HISTORY: Screening TECHNIQUE: Craniocaudal and mediolateral oblique 3-D tomosynthesis images were obtained and synthetic 2-D images were generated. CAD analysis was submitted and interpreted. COMPARISON: Comparison to multiple prior studies sequentially, with oldest reviewed study dated 05/22. BREAST PARENCHYMAL COMPOSITION: Dense: The breasts are heterogeneously dense, which may obscure small masses FINDINGS: There is no evidence of suspicious mass, calcification, or architectural distortion to sugg est malignancy in either breast. There has been no suspicious interval change. IMPRESSION: 1. No mammographic evidence of malignancy. 2. Recommend routine screening mammography in one year. BI-RADS Category 1: Negative Reviewed, dictated and finalized at location A.
== END 2023-06-03 13:55 | disposition home or self-care (01) ==
PROVIDERS: PCP Internal Medicine; Visit Provider Obstetrics & Gynecology
DX: Z12.31 Encounter for screening mammogram for malignant neoplasm of breast (principal)
CPT/HCPCS: 77063; 77067

== ENCOUNTER 2024-04-16 08:05 | Outpatient (CLI) | payer BC, SELFPAY ==
--- OUTSIDE RECORDS SUMMARY | 2024-04-16 08:13 | XMS_ITS | Clinical Summary ---
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 Gender Identity Not on file Sexual Orientation Not on file Plan of Treatment Health Maintenance Due Date Last Done Comments DTAP/TDAP/TD VACCINES (1 - Tdap) 1989 HEPATITIS B VACCINES (1 of 3 - 19+ 3-dose series) 1989 BREAST CANCER SCREENING 2010 COLORECTAL SCREENING 2015 Colorectal Cancer Screening 2015 FIT-DNA Q 3 years 2015 FIT/FOBT Q 1 year 2015 Flex Sig/CT Colonography Q 5 years 2015 ZOSTER VACCINE (1 of 2) 02/12/2020 CERVICAL CANCER SCREENING 09/13/20232020, 09/06/2019, 09/01/2018, Additional history exists INFLUENZA VACCINE (#1) 2023 PNEUMOCOCCAL VACCINE 0-64 YEARS Aged Out No longer eligible based on patient's age to complete this topic Care Teams Career Development Coordinator Relationship Specialty Start Date End Date Hilton Tapia MD [address] [place] [address] PCP - General Internal Medicine 08/03/18
--- OUTSIDE RECORDS SUMMARY | 2024-04-16 08:13 | XMS_ITS | Clinical Summary ---
Author Organization [facility] Address [address] [place] [id number] Care Team Providers Care Menagerie Caretaker Name Role Phone Hilton Tapia MD Primary Care Provider + [phone] Alin Lopez MD Unavailable [phone] Allergies Active Allergy Reactions Criticality Noted Date Comments Codeine Medications cholecalciferol (VITAMIN D-3) 50,000 unit capsule Active ipratropium (ATROVENT) 42 mcg (0.06 %) nasal spray 09/18/2018 Active loratadine-pseud oephedrine (CLARITIN-D 24-hour) 10-240 mg per 24 hr tablet Active montelukast (SINGULAIR) 10 mg tablet 09/08/2018 Active multivitamin tablet Active MICROGESTIN 1/20, 21, 1-20 mg-mcg per tablet Take 1 tablet by mouth daily 3 10/19/2018 Active omeprazole (PriLOSEC) 20 mg capsule Active PARoxetine (PAXIL) 10 mg tablet 09/14/2018 Active valACYclovir (VALTREX) 500 mg tablet 08/03/2018 Active triamcinolone acetonide (NASACORT AQ NASL) Active Active Problems Problem Noted Date Diagnosed Date Pelvic and perineal pain 11/15/2008 Overview (11/09/2018): Written: Vulvar Irritation. Surgical History Surgery Date Site/Laterality Comments NH UNLISTED PROCEDURE INNER EAR Inner Ear Surgery - (Added by BRIAN Conv) BACK SURGERY Back Surgery - (Added by BRIAN Conv) Medical History Medical History Date Comments Personal history of other di seases of the respiratory system History of asthma - (Added b y TW Conv) Personal history of other di seases of the respiratory system History of sinusitis - (Adde d by TW Conv) Family History Medical History Relation Name Comments Breast cancer Mother Family history of malignant neoplasm of breast - (Added by TW Conv) Diabetes Mother Family history of diabetes mellitus - (Added by TW Conv) Hyperlipidemia Mother Family histor y of hyperlipidemia - (Added by TW Conv) Hypertension Mother Family history of hypertension - (Added by TW Conv) Relation Name Status Comments Mother Social History Tobacco Use Types Packs/Day Years Used Date Smoking Tobacco: Never Tobacco Cessation:Counseling Given: Not Answered Personal Safety Answer Date Recorded Getting School Help Needed Not on file 05/16 Comments Unknown Sex and Gender Information Value Date Recorded Sex Assigned at Not on file Legal Sex Female 10:37 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 Gender Identity Not on file Sexual Orientation Not on file Obstetrics History Last Filed Vital Signs Vital Sign Reading Time Taken Comments Blood Pressure 120/76 02/23/2022 10:59 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 Pulse 85 02/23/2022 10:59 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 Temperature 36.6 C (97.9 F) 02/23/2022 10:59 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 Respiratory Rate 16 02/23/2022 10:5 9 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 Oxygen Saturation 99% 02/23/2022 10: 59 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 Inhaled Oxygen Concentration - - Weight 61.6 kg (135 lb 11.2 oz) 022 10:59 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 Height 157.5 cm (5' 2 ) 02/23/2022 10:5 9 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 Body Mass Index 24.82 02/23/2022 10:59 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 Plan of Treatment Health Maintenance Due Date Last Done Comments Breast Cancer Screening-Mammogram 1970 Cervical Cancer Screening 1970 Colon Cancer Screening-Colonoscopy 1970 Depression Screening 1970 Hepatitis C Screening 1970 DTaP/Tdap/Td Vaccine (1 - Tdap) 1981 Hepatitis B Screening 02/12/1988 Regular Well Visit/Exam 18-64 02/12/1988 Zoster Vaccine (1 of 2) 02/12/2020 Influenza Vaccine (#1) 2023 Pneumococcal vaccine <65 Aged Out No longer eligible based on patient's age to complete this topic Insurance .[employer] ID .[employer] Care Teams Menagerie Caretaker Relationship Specialty Start Date End Date Hilton Tapia MD [address] [place] [id number] PCP - General 01/06/17 Alin Lopez MD [address] [place] [address] Referring Physician Otolaryngology 11/09/18
--- OUTSIDE RECORDS SUMMARY | 2024-04-16 08:13 | XMS_ITS | Clinical Summary ---
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 Gender Identity Not on file Sexual Orientation Not on file Plan of Treatment Health Maintenance Due Date Last Done Comments Hepatitis C Virus (HCV) Screening 1970 TdaP Immunization 1970 Hepatitis B Immunization (1 of 3 - 19+ 3-dose series) 1989 Pap Smear 1991 Cervical Cancer Screening (CCS) 02/12/2000 HPV/Cotest 02/12/2000 Colonoscopy 2015 Colorectal Cancer Screening 2015 Cologuard 02/12/2020 Immunochemical Fecal Occult Blood 02/12/2020 Mammogram 02/12/2020 Pneumococcal Immunization (5 0+ years) (1 of 1 - PCV) 02/12/2020 Zoster Immunization (1 of 2) 02/12/2020 Influenza Immunization (#1) 2023 SARS-COV-2 Immunization ( season) 2023 Respiratory Syncytial Virus (RSV) Immunization (Adult) (1 - 1-dose 75+ series) 2045 Meningococcal Immunization (ACWY) Aged Out No longer eligible based on patient's age to complete this topic Pneumococcal Immunization Combined Aged Out No longer eligible based on patient's age to complete this topic Rotavirus Immunization Aged Out No lo nger eligible based on patient's age to complete this topic Insurance [employer] on file
--- OUTSIDE RECORDS SUMMARY | 2024-04-16 08:14 | XMS_ITS | Referral Summary ---
Author Organization [facility] Address [address] [place] [address] Care Team Providers Care Spike Machine Heater Name Role Phone Hilton Tapia MD Primary Care Provider + [phone] Alin Lopez MD Unavailable [phone] Allergies Active Allergy Reactions Criticality Noted Date [...] pain 11/15/2008 Overview (11/09/2018): Written: Vulvar Irritation. 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 Gender Identity Not on file Sexual Orientation Not on file Last Filed Vital Signs Vital Sign Reading Time Taken Comments Blood Pressure 120/76 02/23/2022 10:59 AM FARM SERVICE ADVISER Pulse 85 02/23/2022 10:59 AM FARM SERVICE ADVISER Temperature 36.6 C (97.9 F) 02/23/2022 10:59 AM FARM SERVICE ADVISER Respiratory Rate 16 02/23/2022 10:5 9 AM FARM SERVICE ADVISER Oxygen Saturation 99% 02/23/2022 10: 59 AM FARM SERVICE ADVISER Inhaled Oxygen Concentration - - Weight 61.6 kg (135 lb 11.2 oz) 022 10:59 AM FARM SERVICE ADVISER Height 157.5 cm (5' 2 ) 02/23/2022 10:5 9 AM FARM SERVICE ADVISER Body Mass Index 24.82 02/23/2022 10:59 AM FARM SERVICE ADVISER Plan of Treatment Not on file Insurance Storie [place] Storie [place] Care Teams Spike Machine Heater Relationship Specialty Start Date End Date Hilton Tapia MD [address] [place] [id number] PCP - General 01/06/17 Alin Lopez MD [address] [place] [address] [place] [address] Referring Physician Otolaryngology 11/09/18
[2024-04-16 08:20] LABS: Hematocrit 35.8 % (35.0-49.0); Hemoglobin 11.7 g/dL (12.0-15.0); Mean Corpuscular HGB Conc 32.7 g/dL (32-36); Mean Corpuscular Volume 100.8 fL (78.0-102.0); Mean Platelet Volume 9.5 fl (9.2-11.8); Platelet Count Result 168 K/mm3 (150-420); Red Blood Count 3.55 M/mm3 (4.20-5.40); Red Cell Distribution Width 12.5 % (11.6-14.4); White Blood Count 4.8 K/mm3 (4.8-10.8)
[2024-04-16 08:32] LABS: Hemoglobin A1C 5.5 % (<5.7)
[2024-04-16 08:43] LABS: Add Urine Microscopic? YES; Appearance Urine Clear (Clear); Bilirubin Urine Negative (Negative); Blood Urine 2+ (Negative); Color Urine Yellow (Yellow); Glucose Urine UA Negative (Negative); Ketones Urine Negative (Negative); Leukocyte Esterase Ur 1+ (Negative); Nitrate Urine Negative (Negative); Protein Urine Negative (Negative); Specific Grav Ur 1.025 (1.010-1.020); Urobilinogen Urine 0.2 mg/dL (0.2-1.0)
[2024-04-16 09:01] LABS: RBC Urine 0-2 /hpf (0-2); WBC Urine 0-3 /hpf (0-3)
[2024-04-16 09:02] LABS: Bacteria Urine 1+ /hpf; Squamous Epithelial Cell Urine Moderate /hpf (Few)
[2024-04-16 11:05] LABS: Alanine Aminotransferase 20 U/L (14-59); Albumin Level 3.5 g/dL (3.4-5.0); Alkaline Phosphatase 55 U/L (46-116); Anion Gap 4 mmol/L (4-12); Aspartate Amino Transferase 12 U/L (15-37); Bilirubin,Total 0.4 mg/dL (0.00-1.00); Blood Urea Nitrogen 25 mg/dL (7-18); Calcium 8.7 mg/dL (8.5-10.1); Carbon Dioxide 28 mmol/L (21-32); Chloride 105 mmol/L (98-108); Cholesterol 207 mg/dL (0-200); Estimated Glomerular Filt Rate > 60; Glucose 95 mg/dL (70-99); HDL Direct 80 mg/dL (40-60); LDL Cholesterol Calculated 98 mg/dL (<130); Osmolality Calculated 288 mOsm/kg (285-295); Potassium 3.8 mmol/L (3.5-5.1); Sodium 137 mmol/L (136-145); Total Protein 6.7 g/dL (6.4-8.2); Triglycerides 147 mg/dL (0-150); Vitamin B12 594 pg/mL (193-986)
== END 2024-04-16 08:06 | disposition home or self-care (01) ==
LOC: CHSLAB 08:09
PROVIDERS: PCP Internal Medicine; Visit Provider Internal Medicine
DX: I10 Essential (primary) hypertension (principal); E78.2 Mixed hyperlipidemia; J31.0 Chronic rhinitis; D64.9 Anemia, unspecified; R73.01 Impaired fasting glucose
CPT/HCPCS: 36415; 80053; 80061; 81001; 82607; 83036; 85027

== ENCOUNTER 2024-05-10 14:08 | Outpatient (CLI) | payer BC, SELFPAY ==
--- NOTE | ~2024-05-10 | XR_ITS ---
XR chest 2V Ordering provider: Hilton Tapia MD History: 54 years Female with . COUGH and sinus infection x 2 weeks . Comparison: None. FINDINGS: MEDIASTINUM: The cardiac silhouette is not enlarged. LUNGS: No infiltrates, effusions or pneumothorax. OTHER: No free air under the diaphragm. IMPRESSION: No acute cardiopulmonary pathology Reviewed, dictated and finalized at location A.
[2024-05-10 14:49] LABS: Mean Corpuscular HGB Conc 33.3 g/dL (32-36); Mean Corpuscular Volume 98.9 fL (78.0-102.0); Mean Platelet Volume 9.7 fl (9.2-11.8); Platelet Count Result 154 K/mm3 (150-420); Red Blood Count 3.64 M/mm3 (4.20-5.40); Red Cell Distribution Width 11.9 % (11.6-14.4); White Blood Count 2.9 K/mm3 (4.8-10.8)
[2024-05-10 15:44] LABS: Band Neutrophils Percent 0 % (0-6); Basophils Percent Manual 0 % (0-1); Eosinophils Percent Manual 0 % (1-6); Lymphocytes Absolute Manual 0.92 K/mm3 (1.1-4.5); Lymphocytes Percent Manual 32 % (18-44); Monocytes Absolute Manual 0.58 K/mm3 (0.1-0.90); Monocytes Percent Manual 20 % (3-9); Neutrophils Absolute Manual 1.39 K/mm3 (1.7-7.2); Neutrophils Percent Manual 48 % (46-73); Total Cells Counted 100
[2024-05-10 15:45] LABS: Platelet Estimate Adequate (Adequate)
[2024-05-10 16:04] LABS: Influenza A QL RT-PCR Negative (Negative); Influenza B QL RT-PCR Negative (Negative); RSV RNA, RT-PCR Negative (Negative); SARS-CoV-2 RNA PCR Negative (Negative)
--- OUTSIDE RECORDS SUMMARY | 2024-05-10 16:26 | XMS_ITS | Clinical Summary ---
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
--- OUTSIDE RECORDS SUMMARY | 2024-05-10 16:26 | XMS_ITS | Referral Summary ---
Author Organization [facility] Address [address] [place] [address] Care Team Providers Care Deputy Treasurer Name Role Phone Hilton Tapia MD Primary Care Provider + [phone] Alin Lopez MD Unavailable [phone] Allergies Active Allergy Reactions Criticality Noted Date [...] on file Legal Sex Female 10:37 AM QUALITY CONTROL DIRECTOR Gender Identity Not on file Sexual Orientation Not on file Last Filed Vital Signs Vital Sign Reading Time Taken Comments Blood Pressure 120/76 02/23/2022 10:59 AM QUALITY CONTROL DIRECTOR Pulse 85 02/23/2022 10:59 AM QUALITY CONTROL DIRECTOR Temperature 36.6 C (97.9 F) 02/23/2022 10:59 AM QUALITY CONTROL DIRECTOR Respiratory Rate 16 02/23/2022 10:5 9 AM QUALITY CONTROL DIRECTOR Oxygen Saturation 99% 02/23/2022 10: 59 AM QUALITY CONTROL DIRECTOR Inhaled Oxygen Concentration - - Weight 61.6 kg (135 lb 11.2 oz) 022 10:59 AM QUALITY CONTROL DIRECTOR Height 157.5 cm (5' 2 ) 02/23/2022 10:5 9 AM QUALITY CONTROL DIRECTOR Body Mass Index 24.82 02/23/2022 10:59 AM QUALITY CONTROL DIRECTOR Plan of Treatment Not on file Insurance [employer] [place] [employer] [place] Care Teams Deputy Treasurer Relationship Specialty Start Date End Date Hilton Tapia MD [address] [place] [id number] PCP - General 01/06/17 Alin Lopez MD [address] [place] [address] [place] [address] Referring Physician Otolaryngology 11/09/18
--- OUTSIDE RECORDS SUMMARY | 2024-05-10 16:26 | XMS_ITS | Clinical Summary ---
Author Organization [facility] Address [address] [place] [address] Care Team Providers Care Senior Capital Markets Specialist Name Role Phone Hilton Tapia MD Primary Care Provider + [phone] Alin Lopez MD Unavailable [phone] Allergies Active Allergy Reactions Criticality Noted Date [...] Irritation. Surgical History Surgery Date Site/Laterality Comments [place] UNLISTED PROCEDURE INNER EAR Inner Ear Surgery [...] on file Legal Sex Female 10:37 AM BI MANAGER Gender Identity Not on file Sexual Orientation Not on file Obstetrics History Last Filed Vital Signs Vital Sign Reading Time Taken Comments Blood Pressure 120/76 02/23/2022 10:59 AM BI MANAGER Pulse 85 02/23/2022 10:59 AM BI MANAGER Temperature 36.6 C (97.9 F) 02/23/2022 10:59 AM BI MANAGER Respiratory Rate 16 02/23/2022 10:5 9 AM BI MANAGER Oxygen Saturation 99% 02/23/2022 10: 59 AM BI MANAGER Inhaled Oxygen Concentration - - Weight 61.6 kg (135 lb 11.2 oz) 022 10:59 AM BI MANAGER Height 157.5 cm (5' 2 ) 02/23/2022 10:5 9 AM BI MANAGER Body Mass Index 24.82 02/23/2022 10:59 AM BI MANAGER Plan of Treatment Health Maintenance Due Date [...] patient's age to complete this topic Insurance [employer] CHOICE [place] [employer] [place] Care Teams Senior Capital Markets Specialist Relationship Specialty Start Date End Date Hilton Tapia MD [address] [place] [phone] PCP - General 01/06/17 Alin Lopez MD [address] [place] [address] Referring Physician Otolaryngology 11/09/18
--- OUTSIDE RECORDS SUMMARY | 2024-05-10 16:26 | XMS_ITS | Clinical Summary ---
Author Organization [facility] Address [address] [place] [address] Care Team Providers Care Finger Lift Operator Name Role Phone Unavailable Primary Care Provider Unavailabl e Social History Tobacco Use Types Packs/Day Years Used Date Smoking Tobacco: Never Assessed Comments Unknown Sex and Gender Information Value Date Recorded Sex Assigned at Not on file Legal Sex Female 2:13 PM DIETARY TECH Gender Identity Not on file Sexual Orientation [...]
== END 2024-05-10 14:09 | disposition home or self-care (01) ==
PROVIDERS: PCP Internal Medicine; Visit Provider Internal Medicine
DX: J06.9 Acute upper respiratory infection, unspecified (principal); R05.9 Cough, unspecified
CPT/HCPCS: 36415; 71046; 85025; 87637

== ENCOUNTER 2024-05-26 11:22 | Outpatient (CLI) | payer BC, SELFPAY ==
[2024-05-26 11:30] LABS: Basophils Absolute Auto 0.03 K/mm3 (0.00-0.10); Basophils Percent Auto 0.4 % (0.0-1.0); Eosinophils Absolute Auto 0.11 K/mm3 (0.02-0.50); Eosinophils Percent Auto 1.5 % (1.0-6.0); Hemoglobin 12.7 g/dL (12.0-15.0); Immature Granulocyte Absolute 0.02 K/mm3 (0.00-0.00); Immature Granulocyte Percent A 0.3 % (0.0-0.0); Lymphocytes Absolute Auto 2.67 K/mm3 (1.10-4.50); Lymphocytes Percent Auto 35.9 % (18.0-42.0); Mean Corpuscular HGB Conc 33.4 g/dL (32-36); Mean Corpuscular Hemoglobin 32.8 pg (27.0-31.0); Mean Corpuscular Volume 98.2 fL (78.0-102.0); Mean Platelet Volume 9.3 fl (9.2-11.8); Monocytes Absolute Auto 0.53 K/mm3 (0.10-0.90); Monocytes Percent Auto 7.1 % (2.0-11.0); Neutrophils Absolute Auto 4.08 K/mm3 (1.70-7.20); Neutrophils Percent Auto 54.8 % (50.0-70.0); Platelet Count Result 207 K/mm3 (150-420); Red Blood Count 3.87 M/mm3 (4.20-5.40); Red Cell Distribution Width 12.5 % (11.6-14.4); White Blood Count 7.4 K/mm3 (4.8-10.8)
--- OUTSIDE RECORDS SUMMARY | 2024-05-26 12:57 | XMS_ITS | Clinical Summary ---
Author Organization 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
--- OUTSIDE RECORDS SUMMARY | 2024-05-26 12:57 | XMS_ITS | Clinical Summary ---
Author Organization [facility] Address [address] [place] [address] Care Team Providers Care Production Supervisor Trainee Name Role Phone Hilton Tapia MD Primary Care Provider + [phone] Alin Lopez MD Unavailable Allergies Active Allergy Reactions Criticality Noted Date [...] Irritation. Surgical History Surgery Date Site/Laterality Comments [place] UNLISTED PROCEDURE INNER EAR Inner Ear Surgery [...] on file Legal Sex Female 10:37 AM MANAGER MANUFACTURING Gender Identity Not on file Sexual Orientation Not on file Obstetrics History Last Filed Vital Signs Vital Sign Reading Time Taken Comments Blood Pressure 120/76 02/23/2022 10:59 AM MANAGER MANUFACTURING Pulse 85 02/23/2022 10:59 AM MANAGER MANUFACTURING Temperature 36.6 C (97.9 F) 02/23/2022 10:59 AM MANAGER MANUFACTURING Respiratory Rate 16 02/23/2022 10:5 9 AM MANAGER MANUFACTURING Oxygen Saturation 99% 02/23/2022 10: 59 AM MANAGER MANUFACTURING Inhaled Oxygen Concentration - - Weight 61.6 kg (135 lb 11.2 oz) 022 10:59 AM MANAGER MANUFACTURING Height 157.5 cm (5' 2 ) 02/23/2022 10:5 9 AM MANAGER MANUFACTURING Body Mass Index 24.82 02/23/2022 10:59 AM MANAGER MANUFACTURING Plan of Treatment Health Maintenance Due Date [...] patient's age to complete this topic Insurance [employer] CHOICE [place] 51[employer] [place] Care Teams Production Supervisor Trainee Relationship Specialty Start Date End Date Hilton Tapia MD [address] [place] [address] PCP - General 01/06/17 Alin Lopez MD [address] [place] [address] Referring Physician Otolaryngology 11/09/18
--- OUTSIDE RECORDS SUMMARY | 2024-05-26 12:57 | XMS_ITS | Referral Summary ---
Author Organization [facility] Address [address] [place] [phone] Care Team Providers Care Occupational Therapy Department Chair Name Role Phone Hilton Tapia MD Primary Care Provider + [phone] Alin Lopez MD Unavailable [phone] Allergies Active Allergy Reactions Criticality Noted Date [...] on file Legal Sex Female 10:37 AM PATTERN FILER Gender Identity Not on file Sexual Orientation Not on file Last Filed Vital Signs Vital Sign Reading Time Taken Comments Blood Pressure 120/76 02/23/2022 10:59 AM PATTERN FILER Pulse 85 02/23/2022 10:59 AM PATTERN FILER Temperature 36.6 C (97.9 F) 02/23/2022 10:59 AM PATTERN FILER Respiratory Rate 16 02/23/2022 10:5 9 AM PATTERN FILER Oxygen Saturation 99% 02/23/2022 10: 59 AM PATTERN FILER Inhaled Oxygen Concentration - - Weight 61.6 kg (135 lb 11.2 oz) 022 10:59 AM PATTERN FILER Height 157.5 cm (5' 2 ) 02/23/2022 10:5 9 AM PATTERN FILER Body Mass Index 24.82 02/23/2022 10:59 AM PATTERN FILER Plan of Treatment Not on file Insurance [employer] [place] Care Teams Occupational Therapy Department Chair Relationship Specialty Start Date End Date Hilton Tapia MD [address] [place] [id number] PCP - General 01/06/17 Alin Lopez MD [address] [place] [address] [place] [address] Referring Physician Otolaryngology 11/09/18
--- OUTSIDE RECORDS SUMMARY | 2024-05-26 12:57 | XMS_ITS | Clinical Summary ---
Author Organization [facility] Address [address] [place] [address] Attn: Epic Prelude ADT DUANE BOWEN [address] Care Team Providers Care Health Economist Name Role Phone Hilton Tapia MD Primary Care Provider + Social History Tobacco Use Types Packs/Day Years Used Date Smoking Tobacco: Never Assessed Comments Unknown Sex and Gender Information Value Date Recorded Sex Assigned at Not on file Legal Sex Female 5:18 PM SMT OPERATOR Gender Identity Not on file Sexual Orientation Not on file Plan of Treatment Health Maintenance Due Date Last Done Comments DTAP/TDAP/TD VACCINES (1 - Tdap) 1989 HEPATITIS B VACCINES (1 of 3 - 19+ 3-dose series) 1989 HPV/Cotest 02/12/2000 COLORECTAL SCREENING 2015 Colorectal Cancer Screening 2015 FIT-DNA Q 3 years 2015 FIT/FOBT Q 1 year 2015 Flex Sig/CT Colonography Q 5 years 2015 ZOSTER VACCINE (1 of 2) 02/12/2020 BREAST CANCER SCREENING 01/11/2021 01/12/20 20, 01/12/2020, 02/18/2017, Additional history exists CERVICAL CANCER SCREENING 09/13/2023 PAP SMEAR 09/13/2023 09/12/2020, 07/0 08/2019, 09/01/2018, Additional history exists PAP SMEAR 09/13/2023 09/12/2020, 07/0 08/2019, 09/01/2018, Additional history exists INFLUENZA VACCINE (#1) 2023 PNEUMOCOCCAL VACCINE 0-49 YEARS Aged Out No longer eligible based on patient's age to complete this topic Care Teams Health Economist Relationship Specialty Start Date End Date Hilton Tapia MD [address] [place] [address] PCP - General Internal Medicine 08/03/18
== END 2024-05-26 11:23 | disposition home or self-care (01) ==
LOC: CHSLAB 11:23
PROVIDERS: PCP Internal Medicine; Visit Provider Internal Medicine
DX: D64.9 Anemia, unspecified (principal)
CPT/HCPCS: 36415; 85025

== ENCOUNTER 2024-06-07 11:42 | Outpatient (CLI) | payer BC, SELFPAY ==
--- NOTE | ~2024-06-07 | MM_ITS ---
EXAMINATION: MM screening meron BI w evan HISTORY: Screening TECHNIQUE: Craniocaudal and mediolateral oblique 3-D tomosynthesis images were obtained and synthetic 2-D images were generated. CAD analysis was submitted and interpreted. COMPARISON: Comparison to multiple prior studies sequentially, with oldest reviewed study dated 01/31. BREAST PARENCHYMAL COMPOSITION: Dense: The breasts are heterogeneously dense, which may obscure small masses FINDINGS: There is no evidence of suspicious mass, calcification, or architectural distortion to sugg est malignancy in either breast. There has been no suspicious interval change. IMPRESSION: 1. No mammographic evidence of malignancy. 2. Recommend routine screening mammography in one year. BI-RADS Category 1: Negative Reviewed, dictated and finalized at location A.
--- OUTSIDE RECORDS SUMMARY | 2024-06-07 13:36 | XMS_ITS | Clinical Summary ---
Author Organization [facility] Address [address] [place] [address] Attn: Epic Prelude ADT DUANE BOWEN [phone] Care Team Providers Care Electrical Solderer Name Role Phone Hilton Tapia MD Primary Care Provider + Social History Tobacco Use Types Packs/Day Years Used Date Smoking Tobacco: Never Assessed Comments Unknown Sex and Gender Information Value Date Recorded Sex Assigned at Not on file Legal Sex Female 5:18 PM RULING MACHINE OPERATOR Gender Identity Not on file Sexual Orientation Not on file Plan of Treatment Health Maintenance Due Date Last Done Comments DTAP/TDAP/TD VACCINES (1 - Tdap) 1989 HEPATITIS B VACCINES (1 of 3 - 19+ 3-dose series) 1989 HPV/Cotest (21-29) 1991 HPV/Cotest (30-65) 02/12/2000 COLORECTAL SCREENING 2015 Colorectal Cancer Screening 2015 FIT-DNA Q 3 years 2015 FIT/FOBT Q 1 year 2015 Flex Sig/CT Colonography Q 5 years 2015 ZOSTER VACCINE (1 of 2) 02/12/2020 BREAST CANCER SCREENING 01/11/2021 01/12/20 20, 01/12/2020, 02/18/2017, Additional history exists CERVICAL CANCER SCREENING 09/13/2023 PAP SMEAR 09/13/2023 09/12/2020, 0 08/2019, 09/01/2018, Additional history exists PAP SMEAR 09/13/2023 09/12/2020, 0 08/2019, 09/01/2018, Additional history exists INFLUENZA VACCINE (#1) 2023 PNEUMOCOCCAL VACCINE 0-49 YEARS Aged Out No longer eligible based on patient's age to complete this topic Care Teams Electrical Solderer Relationship Specialty Start Date End Date Hilton Tapia MD [address] [place] [phone] PCP - General Internal Medicine 08/03/18
--- OUTSIDE RECORDS SUMMARY | 2024-06-07 13:36 | XMS_ITS | Referral Summary ---
Author Organization [facility] Address [address] [place] [address] Care Team Providers Care Clinical Social Worker Name Role Phone Hilton Tapia MD Primary Care Provider + [phone] Alin Lopez MD Unavailable [phone] Allergies Active Allergy Reactions Criticality Noted Date [...] on file Legal Sex Female 10:37 AM CUSTOMER SUPPORT SPECIALIST Gender Identity Not on file Sexual Orientation Not on file Last Filed Vital Signs Vital Sign Reading Time Taken Comments Blood Pressure 120/76 02/23/2022 10:59 AM CUSTOMER SUPPORT SPECIALIST Pulse 85 02/23/2022 10:59 AM CUSTOMER SUPPORT SPECIALIST Temperature 36.6 C (97.9 F) 02/23/2022 10:59 AM CUSTOMER SUPPORT SPECIALIST Respiratory Rate 16 02/23/2022 10:5 9 AM CUSTOMER SUPPORT SPECIALIST Oxygen Saturation 99% 02/23/2022 10: 59 AM CUSTOMER SUPPORT SPECIALIST Inhaled Oxygen Concentration - - Weight 61.6 kg (135 lb 11.2 oz) 022 10:59 AM CUSTOMER SUPPORT SPECIALIST Height 157.5 cm (5' 2 ) 02/23/2022 10:5 9 AM CUSTOMER SUPPORT SPECIALIST Body Mass Index 24.82 02/23/2022 10:59 AM CUSTOMER SUPPORT SPECIALIST Plan of Treatment Not on file Insurance [place] Care Teams Clinical Social Worker Relationship Specialty Start Date End Date Hilton Tapia MD [address] [place] [phone] PCP - General 01/06/17 Alin Lopez MD [address] [place] [address] [place] [address] Referring Physician Otolaryngology 11/09/18
--- OUTSIDE RECORDS SUMMARY | 2024-06-07 13:36 | XMS_ITS | Clinical Summary ---
Author Organization [facility] Address [address] [place] [address] Care Team Providers Care Warehouse Distribution Specialist Name Role Phone Unavailable Primary Care Provider Unavailabl e Social History Tobacco Use Types Packs/Day Years Used Date Smoking Tobacco: Never Assessed Comments Unknown Sex and Gender Information Value Date Recorded Sex Assigned at Not on file Legal Sex Female 2:13 PM JANITORIAL ACCOUNT MANAGER Gender Identity Not on file Sexual [...]
--- OUTSIDE RECORDS SUMMARY | 2024-06-07 13:36 | XMS_ITS | Clinical Summary ---
Author Organization [facility] Address [address] [place] [address] Care Team Providers Care Laundry Equipment Operator Name Role Phone Hilton Tapia MD Primary Care Provider + [phone] Alin Lopez MD Unavailable [phone] Allergies Active Allergy Reactions Criticality Noted Date [...] Irritation. Surgical History Surgery Date Site/Laterality Comments [place] UNLISTED PROCEDURE INNER EAR Inner Ear Surgery [...] on file Legal Sex Female 10:37 AM HORSE DOCTOR Gender Identity Not on file Sexual Orientation Not on file Obstetrics History Last Filed Vital Signs Vital Sign Reading Time Taken Comments Blood Pressure 120/76 02/23/2022 10:59 AM HORSE DOCTOR Pulse 85 02/23/2022 10:59 AM HORSE DOCTOR Temperature 36.6 C (97.9 F) 02/23/2022 10:59 AM HORSE DOCTOR Respiratory Rate 16 02/23/2022 10:5 9 AM HORSE DOCTOR Oxygen Saturation 99% 02/23/2022 10: 59 AM HORSE DOCTOR Inhaled Oxygen Concentration - - Weight 61.6 kg (135 lb 11.2 oz) 022 10:59 AM HORSE DOCTOR Height 157.5 cm (5' 2 ) 02/23/2022 10:5 9 AM HORSE DOCTOR Body Mass Index 24.82 02/23/2022 10:59 AM HORSE DOCTOR Plan of Treatment Health Maintenance Due Date [...] patient's age to complete this topic Insurance [employer] [place] Care Teams Laundry Equipment Operator Relationship Specialty Start Date End Date Hilton Tapia MD [address] [place] [address] PCP - General 01/06/17 Alin Lopez MD [address] [place] [address] Referring Physician Otolaryngology 11/09/18
== END 2024-06-07 11:43 | disposition home or self-care (01) ==
LOC: CHSIMG 11:43
PROVIDERS: PCP Internal Medicine; Visit Provider Obstetrics & Gynecology
DX: Z12.31 Encounter for screening mammogram for malignant neoplasm of breast (principal)
CPT/HCPCS: 77063; 77067

== ENCOUNTER 2024-11-29 09:41 | Outpatient (CLI) | payer BC, SELFPAY ==
--- NOTE | ~2024-11-29 | XR_ITS ---
EXAMINATION: XR ankle RT min 3V, 11/29/2024 10:20 CDT HISTORY: R ankle pain COMPARISON: No comparisons available. Findings: No acute fracture or malalignment. No significant degenerative changes. Soft tissues unremarkable. Impression: No acute fracture or malalignment. Reviewed, dictated and finalized at location P. Impression: No acute fracture or malalignment.
--- NOTE | ~2024-11-29 | XR_ITS ---
EXAMINATION: XR foot RT min 3V, 11/29/2024 10:20 CDT HISTORY: R ankle pain COMPARISON: No comparisons available. Findings: No acute fracture or malalignment. No significant degenerative changes. Soft tissues unremarkable. Impression: No acute fracture or malalignment. Reviewed, dictated and finalized at location P. Impression: No acute fracture or malalignment.
--- OUTSIDE RECORDS SUMMARY | 2024-11-29 10:14 | XMS_ITS | Clinical Summary ---
Author Organization [facility] Address [address] [place] [address] Care Team Providers Care Office Executive Name Role Phone Hilton Tapia MD Primary Care Provider + [phone] Alin Lopez MD Unavailable Allergies Active Allergy [...] Irritation. Surgical History Surgery Date Site/Laterality Comments [place] UNLISTED PROCEDURE INNER EAR Inner Ear Surgery [...] on file Legal Sex Female 10:37 AM DAIRY FARM OPERATOR Gender Identity Not on file Sexual Orientation Not on file Obstetrics History Last Filed Vital Signs Vital Sign Reading Time Taken Comments Blood Pressure 120/76 02/23/2022 10:59 AM DAIRY FARM OPERATOR Pulse 85 02/23/2022 10:59 AM DAIRY FARM OPERATOR Temperature 36.6 C (97.9 F) 02/23/2022 10:59 AM DAIRY FARM OPERATOR Respiratory Rate 16 02/23/2022 10:5 9 AM DAIRY FARM OPERATOR Oxygen Saturation 99% 02/23/2022 10: 59 AM DAIRY FARM OPERATOR Inhaled Oxygen Concentration - - Weight 61.6 kg (135 lb 11.2 oz) 022 10:59 AM DAIRY FARM OPERATOR Height 157.5 cm (5' 2) 02/23/2022 10:5 9 AM DAIRY FARM OPERATOR Body Mass Index 24.82 02/23/2022 10:59 AM DAIRY FARM OPERATOR Plan of Treatment Health Maintenance Due Date Last Done Comments Breast Cancer Screening-Mammogram 1970 Cervical Cancer Screening 1970 Colon Cancer Screening-Colonoscopy 1970 Depression Screening 1970 Hepatitis C Screening 1970 DTaP/Tdap/Td Vaccine (1 - Tdap) 1981 Hepatitis B Screening 02/12/1988 Regular Well Visit/Exam 18-64 02/12/1988 Zoster Vaccine (1 of 2) 02/12/2020 Influenza Vaccine (#1) 2024 Pneumococcal vaccine <65 Aged Out No longer eligible based on patient's age to complete this topic Insurance [employer] CHOICE [place] [employer] [place] Care Teams Office Executive Relationship Specialty Start Date End Date Hilton Tapia MD [address] [place] [address] PCP - General 01/06/17 Alin Lopez MD [address] [place] [address] Referring Physician Otolaryngology 11/09/18
--- OUTSIDE RECORDS SUMMARY | 2024-11-29 10:14 | XMS_ITS | Clinical Summary ---
Author Organization [facility] Address [address] [place] [address] Care Team Providers Care Print Production Manager Name Role Phone Unavailable Primary Care Provider Unavailabl e Social History Tobacco Use Types Packs/Day Years Used Date Smoking Tobacco: Never Assessed Comments Unknown Sex and Gender Information Value Date Recorded Sex Assigned at Not on file Legal Sex Female 2:13 PM PLASTIC SEWER Gender Identity Not on file Sexual Orientation Not on file Plan of Treatment Health Maintenance Due Date Last Done Comments Hepatitis C Virus (HCV) Screening 1970 TdaP Immunization 1970 Hepatitis B Immunization (1 of 3 - 19+ 3-dose series) 1989 Pap Smear 1991 Cervical Cancer Screening (CCS) 02/12/2000 HPV/Cotest 02/12/2000 Cologuard 2015 Colonoscopy 2015 Colorectal Cancer Screening 2015 Immunochemical Fecal Occult Blood 2015 Pneumococcal Immunization (5 0+ years) (1 of 1 - PCV) 02/12/2020 Zoster Immunization (1 of 2) 02/12/2020 Influenza Immunization (#1) 2024 SARS-COV-2 Immunization ( - season) 2024 Respiratory Syncytial Virus (RSV) Immunization (Adult) (1 - 1-dose 75+ series) 2045 Human Papillomavirus (HPV) Immunization Aged Out No longer eligible b ased on patient's age to complete this topic Meningococcal Immunization (ACWY) Aged Out No longer eligible based on patient's age to complete this topic Rotavirus Immunization Aged Out No lo nger eligible based on patient's age to complete this topic Insurance [employer] on file
--- OUTSIDE RECORDS SUMMARY | 2024-11-29 10:14 | XMS_ITS | Clinical Summary ---
Author Organization [employer] Address [address] [facility] Attn: Epic Prelude ADT DUANE BOWEN [address] Care Team Providers Care Sound Ranging Crewmember Name Role Phone Hilton Tapia MD Primary Care Provider + Social History Tobacco Use Types Packs/Day Years Used Date Smoking Tobacco: Never Assessed Comments Unknown Sex and Gender Information Value Date Recorded Sex Assigned at Not on file Legal Sex Female 5:18 PM CLOSING COORDINATOR Gender Identity Not on file Sexual Orientation [...] 09/01/2018, Additional history exists INFLUENZA VACCINE (#1) 2024 Care Teams Sound Ranging Crewmember Relationship Specialty Start Date End Date Hilton Tapia MD [address] [place] [address] PCP - General Internal Medicine 08/03/18
== END 2024-11-29 09:42 | disposition home or self-care (01) ==
PROVIDERS: PCP Internal Medicine; Visit Provider Nurse Practitioner Family
DX: M25.571 Pain in right ankle and joints of right foot (principal)
CPT/HCPCS: 73610; 73630

== ENCOUNTER 2024-12-01 08:50 | Outpatient (CLI) | payer BC, SELFPAY ==
--- NOTE | ~2024-12-01 | US_ITS ---
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 Right foot swelling. TECHNIQUE: Segmental pressures and plethysmographic and Doppler waveforms of the brachial and lower extremity arteries were obtained. COMPARISON: None. FINDINGS: Right and left brachial artery pressures of 121 mm Hg and 126 mm Hg, respectively, are concordant (normal difference <= 30 mmHg). The right ankle-brachial index (TRESSA) is 1.29 (normal >= 0.9-1.0). The right great toe-brachial index (TBI) is 0.80 (normal >= 0.65). Arterial Doppler waveforms are biphasic with brisk systolic upstrokes at both right posterior tibial and dorsalis pedis arteries. The left TRESSA is 1.15. The left TBI is 0.77. Arterial Doppler waveforms are biphasic with brisk systolic upstrokes at both left posterior tibial and dorsalis pedis arteries. IMPRESSION: 1. No significant arterial occlusive disease to either lower limb with normal bilateral ABIs and TBIs. Reviewed, dictated and finalized at location A. IMPRESSION: 1. No significant arterial occlusive disease to either lower limb with normal b ilateral ABIs and TBIs.
--- OUTSIDE RECORDS SUMMARY | 2024-12-01 09:11 | XMS_ITS | Clinical Summary ---
Author Organization [employer] Address [address] [facility] Attn: Epic Prelude ADT DUANE BOWEN [address] Care Team Providers Care Insulation Board Back Tender Name Role Phone Hilton Tapia MD Primary Care Provider + Social History Tobacco Use Types Packs/Day Years Used Date Smoking Tobacco: Never Assessed Comments Unknown Sex and Gender Information Value Date Recorded Sex Assigned at Not on file Legal Sex Female 5:18 PM AUTOMOTIVE SERVICE CONSULTANT Gender Identity Not on file Sexual Orientation [...] exists INFLUENZA VACCINE (#1) 2024 Care Teams Insulation Board Back Tender Relationship Specialty Start Date End Date Hilton Tapia MD [address] [place] [address] PCP - General Internal Medicine 08/03/18
--- OUTSIDE RECORDS SUMMARY | 2024-12-01 09:11 | XMS_ITS | Clinical Summary ---
Author Organization Address [address] [place] [address] Care Team Providers Care Bow Maker Name Role Phone Unavailable Primary Care Provider Unavailabl e Social History Tobacco Use Types Packs/Day Years Used Date Smoking Tobacco: Never Assessed Comments Unknown Sex and Gender Information Value Date Recorded Sex Assigned at Not on file Legal Sex Female 2:13 PM CABLE DISPATCHER Gender Identity Not on file Sexual Orientation [...]
--- OUTSIDE RECORDS SUMMARY | 2024-12-01 09:11 | XMS_ITS | Clinical Summary ---
Author Organization [facility] Address [address] [place] [address] Care Team Providers Care Gas Turbine Assembler Name Role Phone Hilton Tapia MD Primary Care Provider + [phone] Alin Lopez MD Unavailable [phone] Allergies Active Allergy Reactions Criticality Noted Date [...] Irritation. Surgical History Surgery Date Site/Laterality Comments [place] UNLISTED PROCEDURE INNER EAR Inner Ear Surgery [...] on file Legal Sex Female 10:37 AM INSURANCE VERIFICATION REP Gender Identity Not on file Sexual Orientation Not on file Obstetrics History Last Filed Vital Signs Vital Sign Reading Time Taken Comments Blood Pressure 120/76 02/23/2022 10:59 AM INSURANCE VERIFICATION REP Pulse 85 02/23/2022 10:59 AM INSURANCE VERIFICATION REP Temperature 36.6 C (97.9 F) 02/23/2022 10:59 AM INSURANCE VERIFICATION REP Respiratory Rate 16 02/23/2022 10:5 9 AM INSURANCE VERIFICATION REP Oxygen Saturation 99% 02/23/2022 10: 59 AM INSURANCE VERIFICATION REP Inhaled Oxygen Concentration - - Weight 61.6 kg (135 lb 11.2 oz) 022 10:59 AM INSURANCE VERIFICATION REP Height 157.5 cm (5' 2) 02/23/2022 10:5 9 AM INSURANCE VERIFICATION REP Body Mass Index 24.82 02/23/2022 10:59 AM INSURANCE VERIFICATION REP Plan of Treatment Health Maintenance Due Date [...] patient's age to complete this topic Insurance [employer] [place] [employer] [place] Care Teams Gas Turbine Assembler Relationship Specialty Start Date End Date Hilton Tapia MD [address] [place] [address] PCP - General 01/06/17 Alin Lopez MD [address] [place] [address] Referring Physician Otolaryngology 11/09/18
== END 2024-12-01 08:51 | disposition home or self-care (01) ==
LOC: CHSIMG 08:51
PROVIDERS: PCP Internal Medicine; Visit Provider Nurse Practitioner Family
DX: I73.9 Peripheral vascular disease, unspecified (principal); R60.9 Edema, unspecified
CPT/HCPCS: 93922

== ENCOUNTER 2025-02-15 07:49 | Outpatient (CLI) | payer BC, SELFPAY ==
--- OUTSIDE RECORDS SUMMARY | 2025-02-15 07:53 | XMS_ITS | Clinical Summary ---
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 Gender Identity Not on file Sexual Orientation Not on file Last Filed Vital Signs Vital Sign Reading Time Taken Comments Blood Pressure 120/76 02/23/2022 10:59 AM ENTRY LEVEL STAFF ACCOUNTANT Pulse 85 02/23/2022 10:59 AM ENTRY LEVEL STAFF ACCOUNTANT Temperature 36.6 C (97.9 F) 02/23/2022 10:59 AM ENTRY LEVEL STAFF ACCOUNTANT Respiratory Rate 16 02/23/2022 10:5 9 AM ENTRY LEVEL STAFF ACCOUNTANT Oxygen Saturation 99% 02/23/2022 10: 59 AM ENTRY LEVEL STAFF ACCOUNTANT Inhaled Oxygen Concentration - - Weight 61.6 kg (135 lb 11.2 oz) 022 10:59 AM ENTRY LEVEL STAFF ACCOUNTANT Height 157.5 cm (5' 2) 02/23/2022 10:5 9 AM ENTRY LEVEL STAFF ACCOUNTANT Body Mass Index 24.82 02/23/2022 10:59 AM ENTRY LEVEL STAFF ACCOUNTANT Plan of Treatment Health Maintenance Due Date [...] patient's age to complete this topic Insurance [employer] [place] [employer] [place] Care Teams Senior Drafter Relationship Specialty Start Date End Date Hilton Tapia MD [address] [place] [id number] PCP - General 01/06/17 [place] [address] Referring Physician Otolaryngology 11/09/18
--- OUTSIDE RECORDS SUMMARY | 2025-02-15 07:53 | XMS_ITS | Clinical Summary ---
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
--- OUTSIDE RECORDS SUMMARY | 2025-02-15 07:53 | XMS_ITS | Clinical Summary ---
Author Organization [facility] Address [address] 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
[2025-02-15 08:02] LABS: Add Urine Microscopic? YES; Appearance Urine Clear (Clear); Glucose Urine UA Negative (Negative); Hematocrit 37.7 % (35.0-49.0); Hemoglobin 12.6 g/dL (12.0-15.0); Leukocyte Esterase Ur Negative LEU/UL (Negative); Mean Corpuscular HGB Conc 33.4 g/dL (32-36); Mean Corpuscular Hemoglobin 33.5 pg (27.0-31.0); Mean Corpuscular Volume 100.3 fL (78.0-102.0); Nitrate Urine Negative (Negative); Platelet Count Result 207 K/mm3 (150-420); Red Blood Count 3.76 M/mm3 (4.20-5.40); Specific Grav Ur >= 1.030 (1.010-1.020); White Blood Count 6.0 K/mm3 (4.8-10.8)
[2025-02-15 08:36] LABS: Hemoglobin A1C 5.2 % (<5.7)
[2025-02-15 08:41] LABS: Alanine Aminotransferase 15 U/L (6-35); Albumin Level 4.4 g/dL (3.5-5.1); Alkaline Phosphatase 57 U/L (38-126); Anion Gap 10 mmol/L (4-12); Aspartate Amino Transferase 24 U/L (14-36); Bilirubin,Total 0.5 mg/dL (0.2-1.3); Blood Urea Nitrogen 25 mg/dL (7-17); Calcium 9.7 mg/dL (8.4-10.2); Carbon Dioxide 26 mmol/L (22-30); Chloride 104 mmol/L (98-107); Cholesterol 217 mg/dL (0-200); Estimated Glomerular Filt Rate > 60; Glucose 103 mg/dL (65-110); HDL Direct 86 mg/dL; Osmolality Calculated 294 mOsm/kg (285-295); Potassium 3.8 mmol/L (3.4-5.0); Sodium 140 mmol/L (137-145); Total Protein 7.0 g/dL (6.3-8.2); Triglycerides 192 mg/dL (<150)
== END 2025-02-15 07:50 | disposition home or self-care (01) ==
PROVIDERS: PCP Internal Medicine; Visit Provider Internal Medicine
DX: R73.01 Impaired fasting glucose (principal); E78.2 Mixed hyperlipidemia; I10 Essential (primary) hypertension; N39.0 Urinary tract infection, site not specified
CPT/HCPCS: 36415; 80053; 80061; 81001; 83036; 85027

== ENCOUNTER 2025-02-25 15:50 | Outpatient (CLI) | payer BC, SELFPAY ==
--- OUTSIDE RECORDS SUMMARY | 2025-02-25 15:57 | XMS_ITS | Clinical Summary ---
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 Gender Identity Not on file Sexual Orientation Not on file Last Filed Vital Signs Vital Sign Reading Time Taken Comments Blood Pressure 120/76 02/23/2022 10:59 AM AIRCRAFT ACCESSORIES MECHANIC Pulse 85 02/23/2022 10:59 AM AIRCRAFT ACCESSORIES MECHANIC Temperature 36.6 C (97.9 F) 02/23/2022 10:59 AM AIRCRAFT ACCESSORIES MECHANIC Respiratory Rate 16 02/23/2022 10:5 9 AM AIRCRAFT ACCESSORIES MECHANIC Oxygen Saturation 99% 02/23/2022 10: 59 AM AIRCRAFT ACCESSORIES MECHANIC Inhaled Oxygen Concentration - - Weight 61.6 kg (135 lb 11.2 oz) 022 10:59 AM AIRCRAFT ACCESSORIES MECHANIC Height 157.5 cm (5' 2) 02/23/2022 10:5 9 AM AIRCRAFT ACCESSORIES MECHANIC Body Mass Index 24.82 02/23/2022 10:59 AM AIRCRAFT ACCESSORIES MECHANIC Plan of Treatment Not on file Insurance [facility] BL[facility] Care Teams Clinical Lab Assistant Relationship Specialty Start Date End Date Hilton Tapia MD [address] [place] [address] PCP - General 01/06/17 Alin Lopez MD [address] [place] [address] Referring Physician Otolaryngology 11/09/18
--- OUTSIDE RECORDS SUMMARY | 2025-02-25 15:57 | XMS_ITS | Clinical Summary ---
Author Organization [facility] Address [address] 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
--- OUTSIDE RECORDS SUMMARY | 2025-02-25 15:57 | XMS_ITS | Clinical Summary ---
Author Organization 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
[2025-02-25 17:20] LABS: Free T4 Free Thyroxine 0.93 ng/dL (0.78-2.19)
[2025-02-25 17:21] LABS: Free T3 3.03 pg/mL (2.18-3.98)
[2025-02-25 17:33] LABS: Thyroid Stimulating Hormone 0.709 uIU/mL (0.465-4.680)
[2025-02-25 17:53] LABS: Vitamin B12 767.0 pg/mL (239-931)
== END 2025-02-25 15:51 | disposition home or self-care (01) ==
PROVIDERS: PCP Internal Medicine; Visit Provider Internal Medicine
DX: E53.8 Deficiency of other specified B group vitamins (principal); E03.4 Atrophy of thyroid (acquired); E55.9 Vitamin D deficiency, unspecified
CPT/HCPCS: 36415; 82306; 82607; 84439; 84443; 84481